=== PATIENT | male | born 1985 | race American Indian/Alaskan Native ===

== ENCOUNTER 2018-04-07 00:34 | Emergency (ER) | payer MEDICAID ==
[2018-04-07] MEDS ORDERED: Albuterol-Ipratrop 3 mg / 0.5 (3 ml) UD ONE ×2 (01:29→02:23)
[2018-04-07] MEDS: Albuterol-Ipratrop 3 mg / 0.5 (3 ml) UD IH SCH ×2 (01:30→01:52)
--- NOTE | 2018-04-07 01:51 | C.PDOC ---
History Of Present Illness 32 year old asthmatic male who is a smoker presents to the ER with a complaint of cough for the past 4 day worsening and now productive of yellow sputum. Patient also reports increasing SOB despite use of his inhaler that he then ran out of. Denies fever or chest pain. Time Seen by Provider: 04/07/18 01:02 Chief Complaint (Nursing): Shortness Of Breath History Per: Patient History/Exam Limitations: no limitations Onset/Duration Of Symptoms: Days (4) Current Symptoms Are (Timing): Still Present Location Of Pain: None Sick Contacts (Context): None Associated Symptoms: Cough, Other (SOB, no chest pain). denies: Fever Ear Symptoms: Bilateral: None Recent travel outside of the [place]: No Past Medical History Reviewed: Historical Data, Nursing Documentation, Vital Signs Vital Signs: Last Vital Signs Temp 98.1 F 04/07/18 00:46 Pulse 92 H 04/07/18 00:46 Resp 16 04/07/18 00:46 BP 131/84 04/07/18 00:46 Pulse Ox 95 04/07/18 00:46 - Medical History PMH: Asthma - [facility] Procedures APPLICATION OF SPLINT (08/19/05) NEBULIZER THERAPY (04/12/04) Family History: States: Unknown Family Hx - Social History Hx Alcohol Use: Yes Hx Substance Use: Yes Review Of Systems Constitutional: Negative for: Fever, Chills Cardiovascular: Negative for: Chest Pain, Palpitations Respiratory: Positive for: Cough, Shortness of Breath, Sputum (Yellow) Gastrointestinal: Negative for: Nausea, Vomiting Neurological: Negative for: Weakness, Numbness Physical Exam - Physical Exam Appears: Non-toxic, Unkempt Skin: Normal Color, Warm, Dry Head: Atraumatic, Normacephalic Eye(s): bilateral: Normal Inspection Ear(s): Bilateral: Normal Nose: Normal Oral Mucosa: Moist Teeth: Other (Poor dentition) Throat: Normal, No Erythema, No Exudate Neck: Normal, Supple Chest: Symmetrical, No Tenderness Cardiovascular: Rhythm Regular Respiratory: No Rales, No Rhonchi, Wheezing (Expiratory) Gastrointestinal/Abdominal: Soft, No Tenderness Extremity: Normal ROM (x4) Neurological/Psych: Oriented x3, Normal Speech ED Course And Treatment O2 Sat by Pulse Oximetry: 95 (Room air) Pulse Ox Interpretation: Normal Medical Decision Making Medical Decision Making: Prednisone and albuterol nebulizer administered. Patient is resting comfortably in the ER in no acute respiratory distress with clear breath sounds, vitals are stable, will start on zithromax and discharge home with Rx and instructions to follow up with PMD. Disposition Counseled Patient/Family Regarding: Diagnosis, Need For Followup, Rx Given - Disposition Referrals: [facility] [Outside] [facility] [Outside] Disposition: HOME/ ROUTINE Disposition Time: 02:45 Condition: IMPROVED Additional Instructions: Follow up with your primary medical doctor or clinic in 2-5 days for further evaluation. Take medications as prescribed. Return to the emergency department at any time if symptoms persist or worsen. Prescriptions: Albuterol HFA [Ventolin HFA 90 mcg/actuation (8 g)] 1 puff IH Q4 #1 puff Azithromycin [Zithromax] 250 mg PO DAILY #4 tab predniSONE [predniSONE Tab] 40 mg PO DAILY #10 tab Instructions: Bacterial Upper Respiratory Infection, Adult (DC) - POA Present On Arrival: None - Clinical Impression Clinical Impression: Asthma, URI (upper respiratory infection) - PA / MAINTENANCE DIRECTOR / Resident Statement MD/DO has reviewed & agrees with the documentation as recorded. - Scribe Statement The provider has reviewed the documentation as recorded by the Scribana luisa Goodman All medical record entries made by the Osmelibana luisa were at my direction and personally dictated by me. I have reviewed the chart and agree that the record accurately reflects my personal performance of the history, physical exam, medical decision making, and the department course for this patient. I have also personally directed, reviewed, and agree with the discharge instructions and disposition.
[2018-04-07] MEDS ORDERED: Albuterol-Ipratrop 3 mg / 0.5 (3 ml) UD IH SCH (02:15)
[2018-04-07 02:20] VITALS: BP 101/63; TEMP 97.9
[2018-04-07 02:37] VITALS: PULSE 92; RESP 18; O2SAT 95
== END 2018-04-07 02:56 | disposition home or self-care (01) ==
LOC: C.ER 00:34
DX: J45.909 Unspecified asthma, uncomplicated (principal); J06.9 Acute upper respiratory infection, unspecified; F17.210 Nicotine dependence, cigarettes, uncomplicated